=== PATIENT | male | born 1970 | race Caucasian/White ===

== ENCOUNTER 2023-03-07 00:49 | Day surgery (SDC) | payer BC, SELFPAY ==
[2023-02-26 15:21] VITALS: BMI 36.3
[2023-03-07 07:17] VITALS: BP 134/92; PULSE 83; RESP 18; TEMP 36; O2SAT 98; BMI 34.9
[2023-03-07] MEDS: LACTATED RINGERS 1,000 ML 150 ML IV CONT (07:27)
[2023-03-07 07:29] LABS: Glucose Point of Care 143 mg/dl (65-105)
--- NOTE | 2023-03-07 08:12 | WPDANESEPPF ---
Anes - Initial Pre Proc Eval Procedure: Operation Date: 03/07/23 08:30 Proposed Procedures p Screening Colonoscopy - Cornel Dorado MD Date/Time: 03/07/23 08:12 Surgeon: Cornel Dorado MD Pre Op Diagnosis: neoplasm screening Patient Data Age: 52 Gender: M Height: 1.85 m Weight: 120.2 kg Last Vital Signs Temp 96.8 F L 03/07/23 07:17 Pulse 83 03/07/23 07:17 Resp 18 03/07/23 07:17 BP 134/92 H 03/07/23 07:17 Pulse Ox 98 03/07/23 07:17 O2 Del Method Room Air 03/07/23 07:17 Allergies Allergy/AdvReac Type Severity Reaction Status Date / Time No Known Allergies Allergy Mild Verified 03/07/23 07:15 Home Medications Medication Instructions Recorded Confirmed Type apixaban 5 mg tablet (Eliquis) 5 mg PO BID 08/15/19 03/07/23 History atorvastatin 40 mg tablet 40 mg PO DAILY 08/15/19 03/07/23 History metoprolol tartrate 25 mg tablet 25 mg PO BID 08/15/19 03/07/23 History multivitamin 1 tablet PO DAILY 03/25/21 03/07/23 History metformin 500 mg tablet 500 mg PO BIDWMEAL #180 tabs 12/08/22 03/07/23 Rx alprazolam 0.25 mg tablet (Xanax) 0.25 mg PO TID PRN anxiety #30 tabs 01/30/23 03/07/23 Rx lisinopril 10 mg tablet 10 mg PO DAILY 01/30/23 03/07/23 History escitalopram oxalate 10 mg tablet 10 mg PO DAILY #90 tabs 02/09/23 03/07/23 Rx escitalopram oxalate 20 mg tablet See Rx Instructions .Route 02/14/23 03/07/23 Rx .COMPLEX #90 tabs Laboratory Tests 03/07/23 07:22 POC Capillary Glucose 143 H mg/dl (65-105) Patient hx anesthesia problems: none Family hx anesthesia problems: none Results Review: All pre-operative results and documents have been reviewed as part of the pre-operative evaluation. [facility] Past Medical History Medical History Atrial fibrillation COVID-19 Liver mass Obesity (BMI 30.0-34.9) Surgical History Surgical History History of hernia repair (~2009) S/P ablation of atrial fibrillation Family History Family History Mother Osteoporosis Father Patient's father is in good health Sibling No chronic problems Sibling No chronic problems Grandparent Diabetes mellitus Grandparent Pancreatic cancer Grandparent Lung cancer Daughter Down's syndrome Social History Social History Smoking status: Never smoker Alcohol intake: current Drinks per week: 1 Substance use: never Living arrangements: with family Gender identity (if verbalized by the patient): Male Spiritual care concerns: No Anes - Eval Final PreProcedure Day of Procedure 03/07/23 08:12 Patient weight: obese Heart: regular rate and rhythm Lungs: clear to auscultation Airway: Mallampati scale class II Neurological: alert and oriented Last oral intake: >/= 8 hours ASA classification: III Emergent: no Anesthetic plan: proceed Anesthesia type and monitoring: general GIVS and standard monitoring Results Review: All pre-operative results and documents have been reviewed as part of the pre-operative evaluation. Informed Consent: The patient's anesthetic plan and its attendant risks and benefits were discussed with the patient/family/POA. Questions were solicited and answers provided to the satisfaction of the patient/family/POA.
--- NOTE | 2023-03-07 08:24 | PM.HPGS ---
History of Present Illness History of Present Illness Consent: Risks, benefits, and alternatives have been discussed and questions answered. Patient agrees to proceed with procedure. Chief complaint: neoplasm screening Narrative: [place] is a 52 year old male here for first screening colonoscopy Review of Systems Constitutional: Constitutional: Denies headache(s) and Denies weakness Eyes: Eyes: Denies blurry vision ENT: Reports Normal hearing present, Denies headache(s) and Denies neck pain Cardiovascular: Cardiovascular: Denies chest pain and Denies dyspnea Respiratory: Respiratory: Denies dyspnea Gastrointestinal: Gastrointestinal: Reports no additional gastrointestinal complaints Genitourinary: Genitourinary: Denies dysuria Musculoskeletal: Musculoskeletal: Denies neck pain Integumentary/Breasts: Skin/Breast: Denies dry skin Neurologic: Reports Normal hearing present, Denies headache(s) and Denies weakness Psychiatric: Psychiatric: Denies anxiety Endocrine: Endocrine: Denies change in body appearance Hematologic/Lymphatic: Hematologic/Lymphatic: Denies easy bleeding Allergic/Immunologic: Allergic/Immunologic: Denies urticaria [facility] Past Medical History Medical History Atrial fibrillation COVID-19 Liver mass Obesity (BMI 30.0-34.9) Surgical History Surgical History History of hernia repair (~2009) S/P ablation of atrial fibrillation Family History Family History Mother Osteoporosis Father Patient's father is in good health Sibling No chronic problems Sibling No chronic problems Grandparent Diabetes mellitus Grandparent Pancreatic cancer Grandparent Lung cancer Daughter Down's syndrome Social History Social History Smoking status: Never smoker Alcohol intake: current Drinks per week: 1 Substance use: never Living arrangements: with family Gender identity (if verbalized by the patient): Male Spiritual care concerns: No Meds Home Medications and Allergies Home Medications Medication Instructions Recorded Confirmed Type apixaban 5 mg tablet (Eliquis) 5 mg PO BID 08/15/19 03/07/23 History atorvastatin 40 mg tablet 40 mg PO DAILY 08/15/19 03/07/23 History metoprolol tartrate 25 mg tablet 25 mg PO BID 08/15/19 03/07/23 History multivitamin 1 tablet PO DAILY 03/25/21 03/07/23 History metformin 500 mg tablet 500 mg PO BIDWMEAL #180 tabs 12/08/22 03/07/23 Rx alprazolam 0.25 mg tablet (Xanax) 0.25 mg PO TID PRN anxiety #30 tabs 01/30/23 03/07/23 Rx lisinopril 10 mg tablet 10 mg PO DAILY 01/30/23 03/07/23 History escitalopram oxalate 10 mg tablet 10 mg PO DAILY #90 tabs 02/09/23 03/07/23 Rx escitalopram oxalate 20 mg tablet See Rx Instructions .Route 02/14/23 03/07/23 Rx .COMPLEX #90 tabs Allergies Allergy/AdvReac Type Severity Reaction Status Date / Time No Known Allergies Allergy Mild Verified 03/07/23 07:15 Vital Signs Vital Signs - 24 hr 03/07/23 07:17 Temperature 96.8 F L Pulse Rate 83 Respiratory Rate 18 Blood Pressure 134/92 H Pulse Oximetry 98 Oxygen Delivery Room Air Exam Const: General: comfortable and no acute distress HENMT: Face/Nose/Sinus: Normal nares present Eyes: General: appearance normal, both eyes and all related structures Neck: Neck: no JVD Resp: Auscultation: clear to auscultation bilaterally Cardio: Rate: regular rate Rhythm: regular rhythm GI: Inspection: non-distended GI Palp: Yes Soft to palpation Skin: General skin exam: normal color Neuro: General: gait normal Speech: normal speech Extrem: General: normal to inspection Psych: Mental Status: mental status grossly normal Assessment and Plan Assessment and plan (1) Colon cancer scre
[2023-03-07 08:52] VITALS: BP 128/82; PULSE 101; RESP 24; O2SAT 95
[2023-03-07 09:02] VITALS: BP 132/80; PULSE 89; RESP 17; O2SAT 93
[2023-03-07 09:12] VITALS: BP 130/84; PULSE 88; RESP 19; O2SAT 92
--- NOTE | 2023-03-07 09:20 | SUR.PHASEII ---
0912- Pt sitting up in the chair. No complaints of shortness of breath or tightness in chest. Only complaint of irritation/drainage in throat. Will continue to monitor.
[2023-03-07 09:22] VITALS: O2SAT 98
[2023-03-07 09:35] VITALS: O2SAT 96
--- NOTE | 2023-03-07 09:42 | SUR.PHASEII ---
0940- Pt states he's feeling better. No complaints of SOB or tightness in chest. Discharged home.
== END 2023-03-07 09:40 | disposition home or self-care (01) ==
PROVIDERS: PCP Family Medicine; Visit Provider Internal Medicine Gastroenterology
PROC: 0DJD8ZZ Inspection of Lower Intestinal Tract, Via Natural or Artificial Opening Endoscopic (ICD-10-PCS; CPT 45378; principal; 2023-03-07 08:30)
DX: Z12.11 Encounter for screening for malignant neoplasm of colon (principal); D12.4 Benign neoplasm of descending colon; I48.91 Unspecified atrial fibrillation; E66.9 Obesity, unspecified; Z68.35 Body mass index [BMI] 35.0-35.9, adult; Z79.01 Long term (current) use of anticoagulants; Z79.84 Long term (current) use of oral hypoglycemic drugs
CPT/HCPCS: 45385; 82948; 88305; J2704; J7120